=== PATIENT | female | born 1960 | race Caucasian/White ===

== ENCOUNTER 2022-12-09 20:38 | Emergency (ER) | payer OTHER ==
--- NOTE | 2022-12-09 21:02 | ED Lower Extremity ---
General Chief Complaint: Skin/Wound Problems Stated Complaint: L LEG ISSUES FOR 2 YEARS, SWELLING STARTED TODAY Nursing Triage Note: Pt presents with left lower leg swelling and redness Source: patient Exam Limitations: no limitations History of Present Illness Date Seen by Provider: Dec 09, 2022 Time Seen by Provider: 20:49 Initial Comments 62-year-old female patient presented with complaining of left leg swelling and pain and redness. Patient stated she felt hot and had chills yesterday and was seen by primary care physician without finding a source of infection. Patient stated she has had left leg pain and erythema and edema since this morning that gradually getting worse. Patient rated her pain as 8/10 and denies focal neurodeficit, injuries, shortness of breath, chest pain, nausea and vomiting, history of the same problem. Patient had temperature of 101.7 at arrival to ER. Allergies and Home Medications Allergies Coded Allergies: apixaban (Verified Allergy, Unknown, 12/09/22) metoprolol (Verified Allergy, Unknown, 12/09/22) rivaroxaban (Verified Allergy, Unknown, 12/09/22) Patient Home Medication List Home Medication List Reviewed: Yes Review of Systems Constitutional: no symptoms reported EENTM: no symptoms reported Respiratory: no symptoms reported Cardiovascular: no symptoms reported Gastrointestinal: no symptoms reported Genitourinary: no symptoms reported Musculoskeletal: see HPI Skin: see HPI Psychiatric/Neurological: No Symptoms Reported All Other Systems Reviewed Negative Unless Noted: Yes Past Utxziyw-Oyoayd-Torynd Hx Patient Social History Tobacco Use?: No Use of E-Cig and/or Vaping dev: No Substance use?: No Alcohol Use?: No Physical Exam Vital Signs Vital Signs - First Documented 12/09/22 20:41 Temp 37.8 Pulse 104 Resp 18 B/P (MAP) 156/79 (104) Pulse Ox 98 O2 Delivery Room Air Capillary Refill : Less Than 3 Seconds Height, Weight, BMI Height: '" Weight: lbs. oz. kg; BMI Method: General Appearance: mild distress HEENT: PERRL/EOMI Neck: non-tender Cardiovascular: no edema, no gallop, tachycardia Respiratory: chest non-tender, lungs clear, normal breath sounds, no respiratory distress Gastrointestinal: normal bowel sounds, non tender, soft Back: normal inspection Hips: bilateral hip non-tender Legs: left leg pain, left leg swelling Knees: bilateral knee non-tender Feet: left foot swelling Neurologic/Tendon: normal sensation, normal motor functions Left lower extremity with edema and erythema and tenderness from knee to ankle with extension of edema to left foot without neurovascular deficit Progress/Results/Core Measures Results/Orders Lab Results Laboratory Tests Test 12/09/22 20:45 12/09/22 22:33 Range/Units White Blood Count 16.4 H 4.3-11.0 10^3/uL Red Blood Count 4.15 3.80-5.11 10^6/uL Hemoglobin 12.7 11.5-16.0 g/dL Hematocrit 38 35-52 % Mean Corpuscular Volume 92 80-99 fL Mean Corpuscular Hemoglobin 31 25-34 pg Mean Corpuscular Hemoglobin Concent 33 32-36 g/dL Red Cell Distribution Width 12.9 10.0-14.5 % Platelet Count 199 130-400 10^3/uL Mean Platelet Volume 11.2 9.0-12.2 fL Immature Granulocyte % (Auto) 1 % Neutrophils (%) (Auto) 86 H 42-75 % Lymphocytes (%) (Auto) 6 L 12-44 % Monocytes (%) (Auto) 6 0-12 % Eosinophils (%) (Auto) 1 0-10 % Basophils (%) (Auto) 0 0-10 % Neutrophils # (Auto) 14.1 H 1.8-7.8 10^3/uL Lymphocytes # (Auto) 1.0 1.0-4.0 10^3/uL Monocytes # (Auto) 1.0 0.0-1.0 10^3/uL Eosinophils # (Auto) 0.1 0.0-0.3 10^3/uL Basophils # (Auto) 0.1 0.0-0.1 10^3/uL Immature Granulocyte # (Auto) 0.1 0.0-0.1 10^3/uL Neutrophils % (Manual) 88 % Lymphocytes % (Manual) 10 % Monocytes % (Manual) 2 % Prothrombin Time 15.4 H 12.2-14.7 SEC INR Comment 1.2 0.8-1.4 Activated Partial Thromboplast Time 40 H 24-35 SEC Sodium Level 135 135-145 MMOL/L Potassium Level 3.5 L 3.6-5.0 MMOL/L Chloride Level 98 98-107 MMOL/L Carbon Dioxide Level 21 21-32 MMOL/L Anion Gap 16 H 5-14 MMOL/L Blood Urea Nitrogen 13 7-18 MG/DL Creatinine 0.97 0.60-1.30 MG/DL Estimat Glomerular Filtration Rate 66 BUN/Creatinine Ratio 13 Glucose Level 126 H 70-105 MG/DL Lactic Acid Level 2.29 *H 1.18 0.50-2.00 MMOL/L Calcium Level 10.0 8.5-10.1 MG/DL Corrected Calcium 10.1 8.5-10.1 MG/DL Total Bilirubin 0.8 0.1-1.0 MG/DL Aspartate Amino Transf (AST/SGOT) 19 5-34 U/L Alanine Aminotransferase (ALT/SGPT) 13 0-55 U/L Alkaline Phosphatase 176 H 40-136 U/L Total Protein 8.1 6.4-8.2 GM/DL Albumin 3.9 3.2-4.5 GM/DL My Orders Orders - OJ ISBELL MD Cbc With Automated Diff (12/09/22 21:03) Comprehensive Metabolic Panel (12/09/22 21:03) Blood Culture (12/09/22 21:03) Protime With Inr (12/09/22 21:03) Partial Thromboplastin Time (12/09/22 21:03) Acetaminophen Tablet (Acetaminophen Ta (12/09/22 21:15) Ed Iv/Invasive Line Start (12/09/22 21:03) Lactic Acid Analyzer (12/09/22 21:03) Ns Iv 1000 Ml (Ns Iv 1000 Ml) (12/09/22 21:15) Tibia Fibula 2 View Left (12/09/22 21:03) Fentanyl Injection (Fentanyl Injection (12/09/22 21:15) Ondansetron Injection (Ondansetron Inj (12/09/22 21:15) Manual Differential (12/09/22 20:45) Piperacillin/Tazobactam (Piperacillin/Ta (12/09/22 21:45) Vancomycin Injection (Vancomycin Injecti (12/09/22 21:45) Vancomycin Injection (Vancomycin Injecti (12/09/22 21:37) Admission Order(Inpt,Obs,Sdc) (12/09/22 21:37) Ambulate 08,12,20 (12/09/22 21:37) Sequential Compression Device ONCE (12/09/22 21:37) Initiate Admission Nursing Pro .admission (12/09/22 21:37) Code/Resuscitation (12/09/22 21:37) Medications Given in ED Current Medications Medications Dose Ordered Sig/Saleem Route Start Time Stop Time Status Last Admin Dose Admin Acetaminophen 1,000 mg ONCE PRN PO 12/09/22 21:15 12/09/22 21:15 DC 12/09/22 21:13 1,000 MG Fentanyl Citrate 50 mcg ONCE ONCE IVP 12/09/22 21:15 12/09/22 21:16 DC 12/09/22 21:13 50 MCG Ondansetron HCl 4 mg ONCE ONCE IVP 12/09/22 21:15 12/09/22 21:16 DC 12/09/22 21:13 4 MG Piperacillin Sod/ Tazobactam Sod 4.5 gm/Sodium Chloride 100 ml @ 200 mls/hr ONCE ONCE IV 12/09/22 21:45 12/09/22 22:14 DC 12/09/22 21:47 200 MLS/HR Vital Signs/I&O 12/09/22 20:41 Temp 37.8 Pulse 104 Resp 18 B/P (MAP) 156/79 (104) Pulse Ox 98 O2 Delivery Room Air Blood Pressure Mean: 104 Progress Progress Note : Progress Note 62-year-old female patient with left leg erythema and edema and cellulitis with temperature of 101.7 at arrival to ER and tachycardia. CBC, CMP, lactic acid, coagulation panel, x-ray of left tibia and fibula was ordered and reviewed by me and showed white count of 16,000 and lactic acid of 2.29. Patient is not diabetic. Patient treated with IV fluid, Zofran, fentanyl, Tylenol with improvement of her pain. On-call [facility] hospitalist Dr. Garcia was consulted at 2122 and recommended to admit patient to a stepdown unit and give Zosyn and vancomycin. Patient refused admission but later on agreed for admission but refused transfer by ambulance. Because of admitting in cardiac unit patient could not go POV and she decided to leave [facility] and goes to [facility] after leaving this hospita. Patient did not want transfer to [facility] and decided to go POV to the hospital. Patient signed AGAINST MEDICAL ADVICE. Patient was alert and oriented at time of making her decision and her was presented and I agree with her decision. Diagnostic Imaging Diagonstic Imaging: Xray Plain Films/CT/US/NM/MRI: leg Comments Left tibia/fibular x-ray interpreted by me and did not show acute finding. Left leg x-ray interpreted by radiologist and reviewed by me and showed: [facility], [place] NAME: RIVERA [facility] REC#: [id number] PT STATUS: REG ER : 1960 PHYSICIAN: OJ ISBELL MD ADMIT DATE: 12/09/22/ER FS Signed Date of Exam:12/09/22 TIBIA FIBULA 2 VIEW LEFT TIBIA FIBULA 2 VIEW LEFT INDICATION: Left lower extremity cellulitis and swelling. COMPARISON: None available. TECHNIQUE: 2 views of the left tibia and fibula. FINDINGS: No fracture or periosteal reaction. There is a metallic structure within the anterior aspect of the proximal tibia which may be from prior surgery. Severe degenerative changes are present within the left knee. Subcutaneous articulations throughout the lower leg are compatible with patient's reported cellulitis. No soft tissue gas. IMPRESSION: No radiographic features of osteomyelitis. Dictated by: Dictated on workstation # [id number] Dict: 12/09/222121 Trans: 12/09/222136 [facility] [id number] Interpreted by: ANTONIO MURRAY MD Electronically signed by: ANTONIO MURRAY MD 12/09/222136 Departure Impression Primary Impression: Left leg cellulitis Additional Impressions: Sepsis Noncompliance by declining service Disposition: 07 AGAINST MEDICAL ADVICE Condition: Improved Departure-Patient Inst. Decision time for Depature: 22:10 OJ ISBELL MD Dec 09, 2022 21:02
[2022-12-09 21:10] LABS: BASOPHILS # (AUTO) 0.1 10^3/uL (0.0-0.1); BASOPHILS % (AUTO) 0 % (0-10); EOSINOPHILS # (AUTO) 0.1 10^3/uL (0.0-0.3); EOSINOPHILS % (AUTO) 1 % (0-10); HEMATOCRIT 38 % (35-52); HEMOGLOBIN 12.7 g/dL (11.5-16.0); INR 1.2 (0.8-1.4); LYMPHOCYTES % (AUTO) 6 % (12-44); MEAN CORPUSCULAR HEMOGLOBIN 31 pg (25-34); MEAN CORPUSCULAR HGB CONC 33 g/dL (32-36); MEAN CORPUSCULAR VOLUME 92 fL (80-99); MEAN PLATELET VOLUME 11.2 fL (9.0-12.2); MONOCYTES % (AUTO) 6 % (0-12); NEUTROPHILS # (AUTO) 14.1 10^3/uL (1.8-7.8); NEUTROPHILS % (AUTO) 86 % (42-75); PLATELET COUNT 199 10^3/uL (130-400); PROTHROMBIN TIME PATIENT 15.4 SEC (12.2-14.7); WHITE BLOOD COUNT 16.4 10^3/uL (4.3-11.0)
[2022-12-09] MEDS ORDERED: fentaNYL INJECTION 100 MCG/2 ML VIAL IVP ONE (21:15)
[2022-12-09] MEDS ORDERED: ONDANSETRON INJECTION 4 MG/2 ML (SDV) IVP ONE (21:15)
[2022-12-09] MEDS ORDERED: NS IV 1000 ML 1,000 ML IV SCH (21:15)
[2022-12-09] MEDS ORDERED: ACETAMINOPHEN 500 MG TABLET PO PRN (21:15)
[2022-12-09 21:16] LABS: ALBUMIN 3.9 GM/DL (3.2-4.5); BILIRUBIN,TOTAL 0.8 MG/DL (0.1-1.0); CREATININE SERUM 0.97 MG/DL (0.60-1.30); POTASSIUM 3.5 MMOL/L (3.6-5.0); TOTAL PROTEIN 8.1 GM/DL (6.4-8.2)
[2022-12-09 21:21] LABS: LYMPHOCYTES % (MANUAL) 10 %; MONOCYTES % (MANUAL) 2 %; NEUTROPHILS % (MANUAL) 88 %
--- NOTE | 2022-12-09 21:27 | Diagnostic Imaging Report ---
TIBIA FIBULA 2 VIEW LEFT INDICATION: Left lower extremity cellulitis and swelling. COMPARISON: None available. TECHNIQUE: 2 views of the left tibia and fibula. FINDINGS: No fracture or periosteal reaction. There is a metallic structure within the anterior aspect of the proximal tibia which may be from prior surgery. Severe degenerative changes are present within the left knee. Subcutaneous articulations throughout the lower leg are compatible with patient's reported cellulitis. No soft tissue gas. IMPRESSION: No radiographic features of osteomyelitis. Dictated by: Dictated on workstation # [id number]
[2022-12-09] MEDS ORDERED: ceFAZolin 1,000 MG VIAL IV ONE ×2 (21:30)
[2022-12-09] MEDS ORDERED: VANCOMYCIN INJECTION 2,000 MG in NS IV 500 ML 500 ML IV STA (21:37)
[2022-12-09] MEDS ORDERED: PIPERACILLIN/Tazobactam 4.5 GM in NS (IVPB) 100 ML 100 ML IV ONE (21:45)
[2022-12-09] MEDS ORDERED: VANCOMYCIN INJECTION 1,000 MG in NS (IVPB) 250 ML 250 ML IV ONE (21:45)
[2022-12-09 23:56] VITALS: BP 128/53
== END 2022-12-10 00:09 | disposition left against medical advice (07) ==
LOC: ER FS 20:42
DX: A41.9 Sepsis, unspecified organism (principal); L03.116 Cellulitis of left lower limb; R00.0 Tachycardia, unspecified; Z28.310 Unvaccinated for COVID-19
CPT/HCPCS: 36415; 73590; 80053; 83605; 85007; 85027; 85610; 85730; 87040